=== PATIENT | male | born 1985 | race Caucasian/White ===

== ENCOUNTER 2024-09-19 19:35 | Emergency (ER) | payer BC, SELFPAY ==
[2024-09-19 19:35] VITALS: BMI 34.4
[2024-09-19 19:37] VITALS: BP 146/90
[2024-09-19 19:59] LABS: % Basophils 0.5 % (0-2); % Eosinophils 2.3 % (0-6); % Immature Granulocytes 0.2 % (0-0.5); % Lymphocytes 16.7 % (20.5-51.1); % Monocytes 7.5 % (1.7-9.3); % Neutrophils 72.8 % (42.2-75.2); Absolute Basophils 0.1 10^3/uL (0-0.2); Absolute Eosinophils 0.3 10^3/uL (0-0.7); Absolute Lymphocytes 1.8 10^3/uL (1.2-3.4); Absolute Monocytes 0.8 10^3/uL (0.1-0.6); Hematocrit 45.4 % (39.0-52.0); Hemoglobin 16.4 g/dL (13.0-18.0); Mean Corp Hgb Conc. 36.1 g/dL (33.0-37.0); Mean Corpuscular Hgb 29.5 pg (27.0-31.0); Mean Corpuscular Volume 81.8 fL (80.0-94.0); Mean Platelet Volume 9.8 fL (7.4-10.4); Nucleated Red Blood Cells % 0 % (-); Platelet Count 251 10^3/uL (130-400); Red Blood Cell Count 5.55 10^6/uL (4.70-6.10)
[2024-09-19 20:11] VITALS: BP 125/93
[2024-09-19 20:13] LABS: ALT (SGPT) 51 U/L (0-50); AST (SGOT) 34 U/L (17-59); Albumin 5.1 g/dl (3.5-5.0); Alkaline Phosphatase 43 U/L (38-126); Blood Urea Nitrogen 26 mg/dl (9-20); Calcium 9.9 mg/dl (8.4-10.2); Carbon Dioxide 27 mmol/L (22-30); Chloride 97 mmol/L (98-107); Glucose 97 mg/dl (70-99); Potassium 4.3 mmol/L (3.5-5.1); Sodium 134 mmol/L (135-145); Total Bilirubin 0.9 mg/dl (0.2-1.3); Total Protein 7.8 g/dl (6.3-8.2); eGFR > 60.00
[2024-09-19 20:25] LABS: Troponin I < 0.012 ng/ml
[2024-09-19 21:00] VITALS: BP 114/80
[2024-09-19 22:11] VITALS: BP 121/77
[2024-09-19 22:54] LABS: Troponin I < 0.012 ng/ml
--- NOTE | 2024-09-19 23:15 | ED.GENMED ---
History of Present Illness
General
Chief Complaint: Fainting Sensation
Source: patient
Exam Limitations: none
Time Seen by Provider: 09/19/24 21:12
Nursing documentation reviewed up to this point in time: agreed with
History of Present Illness
History of Present Illness:
39 y/o M no chronic medical problems
here from for chest discomfort and the feelin that he needed to yawn but couldn't 'fully yawn.'
he wasnt tired but says he had a funny feeling in his throat/chest region that also was accompanied by lightheadendess
he googled the symptoms and seaw it could be due to herat problems
dad has h/o [place] > 60s
no personal cardiac history
no vomiting, nausea, fatigue, syncope, throat swallowing problems, fever
he did feel a little SOB as well but didn't have pleuritic chest pain
he has not had any recent long travel
no recent cold symptoms
no h/o dvtpe
symptoms are much better now, almost gone
Past History
Past History
ED Past Medical History: None
ED Past Surgical History: Appendectomy and Other (cyst removal)
Social History
Tobacco: Non-smoker
Alcohol: Occasional
Drug: None
Personal:
Living: with family
Review of Systems
Review of Systems
Allergies reviewed?: Yes
All Other Systems: Not applicable
Phy Exam
Physical Exam
Physical Exam:
GENERAL: Alert , in no apparent distress
EYE: pupils equal and reactive
NECK: Supple
ENT: o/p clr, mmm.
throat normal, speaking/swallwing
normal not yawning
CARDIAC: Regular rate and rhythm .
LUNGS: Clear breath sounds bilaterally, no acute respiratory distress, no wheezes/rales/rhonchi
ABDOMEN: Soft, without focal tenderness, no r/g, no cvat, normal bowel sounds
NEUROLOGICAL: Alert and oriented, no focal neuro deficits
SKIN: Warm and dry, skin intact.
MUSCULOSKELETAL: No edema, well perfused. neg tegan's sign
PSYCH: Normal and appropriate interaction.
Course
Orders/Labs/Results
Orders:
Orders
09/19/24 19:36
Electrocardiogram (*1) Urgent
Reason for Study: Chest Pain
Electrocardiogram (*1) Urgent
Reason for Study: Chest Pain
Cardiac Monitoring- Treatment ONCE
EKG- Treatment ONCE
EKG- Treatment ONCE
O2 Therapy [RESP] Urgent
Titrate/Wean O2 to maintain O2 sat greater than (%): 90
Special Instructions: Maintain sats >/=90%
Pulse Ox/spot Check [RESP] Urgent
Quantity: 1
Special Instructions: ON ROOM AIR
09/19/24 19:53
Complete Blood Count/With Diff Urgent
Comprehensive Metabolic Panel Urgent
Troponin I Urgent
09/19/24 22:12
CR Chest - 2 Views Urgent
Comment:
Reason For Exam: CHEST PAIN
09/19/24 22:15
Electrocardiogram (*1) Urgent
Reason for Study: Chest Pain
09/19/24 22:17
Troponin I Urgent
Abnormal Lab Results
09/19/24
19:53
WBC 11.0 H 10^3/uL
(4.8-10.8)
Absolute Neuts (auto) 8.0 H 10^3/uL
(1.4-6.5)
Absolute Monos (auto) 0.8 H 10^3/uL
(0.1-0.6)
Lymphocytes % 16.7 L %
(20.5-51.1)
Sodium 134 L mmol/L
(135-145)
Chloride 97 L mmol/L
(98-107)
BUN 26 H mg/dl
(9-20)
ALT 51 H U/L
(0-50)
Albumin 5.1 H g/dl
(3.5-5.0)
09/19/24 19:53
09/19/24 19:53
Vital Signs
Initial and Last Documented VS:
Initial Vital Signs
Temp Pulse Resp BP Pulse Ox
36.7 C 76 19 146/90 99
09/19/24 19:37 09/19/24 19:37 09/19/24 19:37 09/19/24 19:37 09/19/24 19:37
Last Documented Vital Signs
Temp Pulse Resp BP Pulse Ox
36.7 C 68 19 121/77 94
09/19/24 19:37 09/19/24 22:30 09/19/24 22:30 09/19/24 22:11 09/19/24 22:30
MDM/Problems Addressed
Differential Diagnosis Includes:
gerd, acs, anxiety, pe
MDM/Problems Addressed:
39 y/o M
no pmh
some GERD sxs x 2 days after eating hot sauce
tonight at 5 pm felt funny in throat/chest and thought he needed to yawn but oculdn't fully
he tried and didn't feel like it satisfied his need to yawn
no sob, pleuritic pain, PE
no syncope
feels well now
urgent care tetsed for flu and covid and did ekg and cxr and sent him here
his ekg shows a pulm pattern but no ischemic changes
he has normal exam
no murmur
clear lungs
looks well
1st trop neg
repeated the CXR here, mediatstinum looks narrow
2nd trop and ekg unchanged/neg
d/c home
ED Attending Note
-
Portions of this chart may have been created with voice recognition software.� Occasional wrong word or��sound alike� substitutions may have occurred due to the inherent limitations of voice recognition software.
Discharge Plan
Departure
Patient Disposition: Home (Routine Discharge)
Date of Disposition: 09/19/24
Time of Disposition: 23:21
Patient with high blood pressure during this ER visit?: No
Covid-19: Not Applicable
Discharge Problem:
Chest pain
Instructions: Chest Pain DCA Follow Up
Prescriptions:
No Action
albuterol sulfate [ProAir HFA] 90 mcg/actuation HFA aerosol inhaler
2 puff inhalation Q4HPRN PRN (Reason: shortness of breath) Qty: 8.5 0RF
Referrals:
Rocco High, [Family Provider] -
Activity Restrictions/Additional Instructions:
YOUR WORK UP HERE FOR CARDIAC EMERGENCY WAS REASSURING
YOU HAD 2 NEGATIVE TROPONINS
YOUR CHEST XRAY APPEARS CLEAR
A RADIOLOGIST WILL ALSO READ THIS BY TOMORROW
YOU SHOULD BE HEARING FROM THE GRID OPERATOR FOR FOLLOW UP AN OUTPATIENT
RETURN FOR WORSE SYMPTOMS LIKE PERSISTENT SHORTNESS OF BREATH, PAINFUL BREATHING, PASSING OUT OR ANY CONCERNS,
Interventions
Interventions:
*Risk Screen - Suicide Last Done: 09/19/24 19:37
*General Assessment Last Done: 09/19/24 19:37
*Neglect/Abuse Screening Last Done: 09/19/24 19:37
*ED COVID-19 Vaccine History Last Done: 09/19/24 19:37
ED- Cardiac Assessment Last Done: 09/19/24 20:19
ED- Neurological Assessment Last Done: 09/19/24 20:19
Discharge Date and Time
Print Language: ETHIOPIAN
[2024-09-19 23:43] VITALS: BP 121/71
== END 2024-09-19 23:44 | disposition home or self-care (01) ==
LOC: EMR 19:35
PROVIDERS: Physician Assistant; EMERGENCY PHYSICIAN Student in an Organized Health Care Education/Training Program; FAMILY PHYSICIAN Student in an Organized Health Care Education/Training Program
DX: R07.89 Other chest pain (principal); R42 Dizziness and giddiness; R06.02 Shortness of breath; R20.0 Anesthesia of skin; Z88.1 Allergy status to other antibiotic agents
CPT/HCPCS: 99284; 94760; 71046; 80053; 84484; 85025; 93005